=== PATIENT | female | born 1980 | race Caucasian/White ===

== ENCOUNTER 2019-06-02 22:48 | Emergency (ER) | payer SELFPAY ==
[2019-06-02 22:49] VITALS: BP 140/96; PULSE 124; RESP 18; TEMP 36.9; O2SAT 99; BMI 32.6
--- NOTE | 2019-06-02 22:51 | RAD_ITS ---
HISTORY: FALL, LATERAL PAIN EXAM/TECHNIQUE: XR Ankle Min 3 Views: Right. COMPARISON: None. FINDINGS: # of images incl. paperwork: 3 Acute minimally displaced small in size fracture through the lateral process of the talus. Adjacent soft tissue swelling. No other fracture is evident. The talar dome, and malleoli, are intact. Alignment otherwise anatomic. Normal bony mineralization. No significant underlying degenerative changes. RAD/Ankle min 3 Views IMPRESSION: Acute minimally displaced small in size fracture through the lateral process of the talus. Adjacent soft tissue swelling. at 2316 Reported and signed by: Nixon Zamudio MD Electronically Signed: Nixon Zamudio, at 23:15 EDT Tel , Service support ,
--- NOTE | 2019-06-03 00:02 | ED.VISSUMM ---
- ER Visit Summary Date of Service: 06/03/19 Chief Complaint: Right ankle pain History of Present Illness: The patient is a 39 F who presents with right ankle pain. This occurred about 12 hours ago. She stepped off a step. She states she felt a snap in her right foot or ankle and has had severe pain since that time. She is able to bear weight but very painful. No other injuries. No recent illness. Physical Examination: Heart rate 124 vitals otherwise normal No distress There is soft tissue swelling and tenderness over the lateral right ankle no deformity easily palpable dorsalis pedis pulse with brisk capillary refill normal sensation to light touch no tenderness in the foot Test Results: Ankle x-ray shows an acute minimally displaced fracture of the lateral talus Emergency Department Course and Treatment: X-rays above. Patient was given a boot orthosis and crutches. She was advised to follow-up with orthopedics and was referred. She was given [place] for pain as well as a prescription for a short course of the same. Treatment Plan: [] Disposition: Discharge Impression: Right talus fracture This note was generated with [employer] dictation software. It may contain incorrect words, spelling, and punctuation that were not noted in review of the chart prior to signing ED Disposition - Plan for ED Patient: Referrals: Shireen Charles, JESSIE-C [Primary Care Provider] -
--- NOTE | 2019-06-03 00:04 | DCINST.ED_ITS ---
ED Disposition - Plan for ED Patient: Instructions: FRACTURE, Ankle (General) Prescriptions: Hydrocodone Bitart/Apap 5-325 [Levels 5MG-325MG] 1 tab PO Q6H PRN PRN 3 Days #10 tab PRN Reason: Pain Prescription Printed Referrals: Shireen Charles, BR[employer] OPERATOR-C [Primary Care Provider] -
--- NOTE | 2019-06-03 00:04 | ED.DEP ---
ED Disposition - Plan for ED Patient: Instructions: FRACTURE, Ankle (General) Prescriptions: Hydrocodone Bitart/Apap 5-325 [[place] 5MG-325MG] 1 tab PO Q6H PRN PRN 3 Days #10 tab PRN Reason: Pain Prescription Printed Referrals: Shireen Charles, [employer] [Primary Care Provider] -
[2019-06-03] MEDS: HYDROcodone Bitartrate/Apap 5/325 Tablet PO (00:06)
[2019-06-03 00:20] VITALS: BP 118/70; PULSE 100; RESP 17; O2SAT 98
--- NOTE | 2019-06-03 10:22 | ED.RN ---
Dr Curry wanted this nurse to call pt and give Dr Bradford information for followup. Pt states that she had already called [facility] and set up an appointment
== END 2019-06-03 00:21 | disposition home or self-care (01) ==
PROVIDERS: Emergency Provider Emergency Medicine; Family Provider Nurse Practitioner Family; PCP Nurse Practitioner Family
DX: S92.141A Displaced dome fracture of right talus, initial encounter for closed fracture (principal); W10.9XXA Fall (on) (from) unspecified stairs and steps, initial encounter; Y93.89 Activity, other specified; Y92.9 Unspecified place or not applicable
CPT/HCPCS: 73610; 99284

== ENCOUNTER → 2019-06-13 07:06 | Outpatient (CLI) | payer SELFPAY ==
[2019-06-02 22:49] VITALS: BMI 32.6
--- NOTE | 2019-06-13 07:16 | CT_ITS ---
STUDY: CT RIGHT ANKLE WITHOUT CONTRAST REASON FOR EXAM: Female, 39 years old. Ankle fracture RADIATION DOSAGE (If Supplied By Facility): CTDIvol = ( 15.35 ) mGy, DLP = ( 395.98 ) mGycm TECHNIQUE: Thin section transaxial imaging of the ankle was obtained, with sagittal and coronal reconstructed images. Individualized dose optimization techniques were used for this CT. COMPARISON: X-ray ankle June 02, 2019 FINDINGS: Normal visualized distal tibia and fibula. Normal tibiotalar articulation and talar dome. Again seen is a lucency through the lateral talar process. The calcaneus, navicular and cuboid tarsal bones. Normal subtalar, talonavicular and calcaneocuboid articulations. Normal navicular-cuneiform, cuneiform tarsal bones and intercuneiform articulations. Normal tarsometatarsal articulations and visualized metatarsi. Mild soft tissue swelling is present over the lateral malleolus. CT/Extremity Lower without Contra IMPRESSION: Redemonstrated lateral talar process fracture without significant displacement. Mild soft tissue swelling is present. Electronically Signed: Dioni Singh, at 17:04 EDT Tel , Service support ,
== END ==
PROVIDERS: Family Provider Nurse Practitioner Family; PCP Nurse Practitioner Family; Referring Provider Podiatrist Foot & Ankle Surgery; Visit Provider Podiatrist Foot & Ankle Surgery
DX: S92.191A Other fracture of right talus, initial encounter for closed fracture (principal)
CPT/HCPCS: 73700

== ENCOUNTER → 2024-12-18 | Outpatient (CLI) | payer OTHER, SELFPAY ==
--- NOTE | 2024-12-18 12:35 | RAD_ITS ---
EXAM: XR Right Wrist Complete, 3 or More Views CLINICAL INDICATION: TECHNIQUE: Frontal, lateral and oblique views of the right wrist. COMPARISON: No relevant prior studies available. FINDINGS: BONES/JOINTS: See below. SOFT TISSUES: Soft tissue swelling without acute fracture. No radiopaque foreign body. RAD/Wrist min 3 Views IMPRESSION: 1. Soft tissue swelling without acute fracture. 2. If symptoms persist, repeat radiograph in 7-10 days recommended. Reading Location: [facility]
--- NOTE | 2024-12-18 12:35 | RAD_ITS ---
EXAM: XR Lumbosacral Spine, 4 or 5 Views CLINICAL INDICATION: TECHNIQUE: Frontal, lateral and bilateral oblique views of the lumbar spine. COMPARISON: No relevant prior studies available. FINDINGS: VERTEBRAE: Unremarkable. Normal alignment. No acute fracture. SACRUM/COCCYX: Unremarkable as visualized. No acute fracture. DISC SPACES: Status post posterior fusion of L3-L5 with disc spacers. Intact hardware. SOFT TISSUES: Unremarkable. RAD/L/S Spine Min 4 Views IMPRESSION: No acute fracture. Reading Location: [facility]
== END | disposition home or self-care (01) ==
LOC: MTRAD 12:34
PROVIDERS: PCP Nurse Practitioner Family; Referring Provider Physician Assistant Surgical; Visit Provider Physician Assistant Surgical
DX: S30.0XXA Contusion of lower back and pelvis, initial encounter (principal); S66.912A Strain of unspecified muscle, fascia and tendon at wrist and hand level, left hand, initial encounter; W00.9XXA Unspecified fall due to ice and snow, initial encounter
CPT/HCPCS: 72110; 73110

== ENCOUNTER 2024-12-22 12:15 | Emergency (ER) | payer OTHER, SELFPAY ==
[2024-12-22 12:15] VITALS: BP 185/99; PULSE 98; RESP 18; TEMP 37.1; O2SAT 100; BMI 34.2
--- NOTE | 2024-12-22 14:39 | ED.VIS.BACK ---
HPI History of Present Illness Chief Complaint: Back Informant: patient Narrative Narrative: About 4 days ago, patient had a slip on ice at work and fell to her buttocks and left wrist. [facility] [employer] and had x-rays of her lumbar spine and her left wrist which were negative and she was prescribed a Medrol Dosepak. She states she has taken that and is almost done with it. She states yesterday she started having increased pain at radiating toward both buttocks and some tingling in those areas in her proximal posterior thighs. No weakness in her legs, no numbness in her feet, no bowel or bladder dysfunction or perineal anesthesia/numbness. She had prior remote back surgery involving a fusion of her lower lumbar and upper sacral spine. She denies having any arm weakness, other back pain or current neck pain. She states when she called the [facility] with this information she was advised to not go there and come to the ER instead. She states she has been taking Tylenol and ibuprofen and it is not helping her pain. [facility] Medical History Depression Anxiety delivery delivered Physical exam, pre-employment Home Medications ?Medication ?Instructions ?Recorded ?Last Taken ?Type methylprednisolone 4 mg tablets in 4 mg PO PER PKG DIR 6 days #21 tabs 12/18/24 Unknown Rx a dose pack (Medrol (Samir)) oxycodone-acetaminophen 5 mg-325 1 tab PO Q6H PRN PRN Pain 3 days 12/22/24 Unknown Rx mg tablet #10 TABLETS Allergy/AdvReac Type Severity Reaction Status Date / Time No Known Allergies Allergy Verified 12/22/24 12:15 Surgical History History of appendectomy H/O: hysterectomy History of arthroplasty of left ankle Previous back surgery Social History household members: children housing: house current occupational status: employed Smoking Status: Never smoker ROS ROS ED Constitutional Constitutional ED: Denies chills or fever(s) Gastrointestinal Gastrointestinal: Denies abdominal pain, constipation, fecal incontinence, nausea or vomiting Genitourinary Genitourinary ED: Reports other Details: no urinary retention ; Denies abdominal discomfort or urinary incontinence Musculoskeletal Musculoskeletal: Reports as per HPI and back pain; Denies neck pain Integumentary Denies rash or wounds Neurologic Neurologic: Reports paresthesias RLE and LLE; Denies headache(s) or weakness EXAM Physical Exam Const Vital Signs: 12/22/24 12:15 Temperature 98.7 F Temperature Source Oral Pulse Rate 98 Respiratory Rate 18 Blood Pressure 185/99 H Blood Pressure Mean 127 Pulse Ox 100 Oxygen Delivery Method Room Air Positive well nourished and well developed General Appearance ED: well developed and NAD HEENT Negative for trauma or tenderness Eyes PERRL and EOMs intact bilaterally Neck full ROM and supple GI normal to inspection, nondistended, normoactive bowel sounds, soft to palpation and non-tender Back/Spine normal to inspection Back/Spine Narrative: well-healed surgical scar midline lumbar spine. With straight leg raises, she has radicular symptoms down to the foot with the ipsilateral left straight leg raise, but tingling to the popliteal area only on the right and not as severe as the left. No cross straight leg raises. Cervical Spine: Negative for cervical spine tenderness Thoracic Spine / Upper Back: Negative for thoracic spinal tenderness Lumbar Spine / Lower Back: ROM limited, lumbar spinal tenderness L5 (and sacrum; no crepitance) and paraspinal muscle tenderness Extremity normal to inspection, full ROM and no pedal edema Neuro oriented x3 and no sensory deficits noted Sensorium / Orientation: alert Motor Exam: strength 5/5 throughout and clonus absent Deep Tendon Reflexes: Rt Patellar (L4): 2+, Lt Patellar (L4): 2+, Rt Ankle (S1): 2+ and Lt Ankle (S1): 2+ Deep Tendon Reflexes Back: Rt Patellar (L4): 2+, Lt Patellar (L4): 2+, Rt Ankle (S1): 2+ and Lt Ankle (S1): 2+ Plantar Reflex: Downgoing: bilateral Psych mental status grossly normal and thought process normal Skin no rashes or lesions noted and no wounds MDM MDM MDM Narrative Medical decision making narrative: This patient has straight leg raises that suggest radicular pain full numbness down the left lower extremity but not so much on the right with the same straight leg raises which were to or beyond 45 degrees. Her reflexes are normal, neurologic exam is otherwise normal and she does not have symptoms or findings of cauda equina syndrome. For this reason, she does not meet criteria for an emergent MRI right now, nor do I know if her hardware is compatible. Furthermore, I did review her outpatient x-ray report and images from 4 days ago, and there are a couple of radiopaque disc spacers in place along with the intact hardware, and the spacers are also intact on all of the views. I showed this to the patient to reassure her. At this point, she is reassured neurologically, given a dose of something for pain here and a prescription for some analgesics given that she has been trying [id number] is having trouble functioning and we will have her follow-up with the [facility]. Discharge Plan Triage Chief Complaint: Back ED Provider: Bill Dejesus Dx/Rx/DC Orders Clinical Impression: Lumbosacral ligament sprain, Acute low back pain with left-sided sciatica Instructions: Self-Care for Strains and Sprains, ED Sciatica Prescriptions: New oxycodone-acetaminophen 5-325 mg tablet 1 tab PO Q6H PRN PRN (Reason: Pain) 3 Days Qty: 10 0RF No Action methylprednisolone [Medrol (Samir)] 4 mg tablets,dose pack 4 mg PO PER PKG DIR 6 Days Qty: 21 0RF Primary Care Provider: Shireen Charles NP Referrals: [facility] [Group of Physicians] - As soon as possible (or [facility] if preferred by your employer) Print Language: Burundian Disposition Disposition: Home, Self Care
[2024-12-22] MEDS: oxyCODONE 5 MG Tablet PO (14:51)
[2024-12-22 14:54] VITALS: BP 162/88; PULSE 91; RESP 18; TEMP 37.2; O2SAT 99
== END 2024-12-22 14:55 | disposition home or self-care (01) ==
PROVIDERS: Emergency Provider Emergency Medicine; PCP Nurse Practitioner Family; Visit Provider Emergency Medicine
DX: M54.42 Lumbago with sciatica, left side (principal); S33.9XXA Sprain of unspecified parts of lumbar spine and pelvis, initial encounter; W00.9XXA Unspecified fall due to ice and snow, initial encounter
CPT/HCPCS: 99282

== ENCOUNTER → 2025-01-24 | Outpatient (CLI) | payer OTHER, SELFPAY ==
--- NOTE | 2025-01-24 07:00 | MRI_ITS ---
PROCEDURE: MRI lumbar spine without IV contrast REASON FOR EXAM: Pain, contusion TECHNIQUE: Multisequence multiplanar MR images of the lumbar spine were obtained without the administration of intravenous contrast. COMPARISON: None FINDINGS: Acute/subacute nondisplaced fracture at the level of S2-S3 with surrounding bone marrow edema. No additional acute fractures. Mild chronic compression deformity of the superior endplate of L2. Alignment is satisfactory. Posterior fusion/decompression from L3 through L5. Conus medullaris is intact and terminates at T12-L1. Moderate paraspinal muscle atrophy. L1-2: Minimal posterior disc osteophyte complex. Mild bilateral facet arthrosis. No significant spinal stenosis or foraminal narrowing. L2-3: Small posterior disc bulge. Mild bilateral facet arthrosis. No significant spinal stenosis or foraminal narrowing. L3-4: No focal disc abnormality, spinal stenosis or foraminal narrowing. L4-5: No focal disc abnormality, spinal stenosis or foraminal narrowing. L5-S1: Posterior disc bulge eccentric to the left. Moderate bilateral facet arthrosis. No significant spinal stenosis. Mild left foraminal narrowing. MRI/Spine Lumbar (Routine) IMPRESSION: 1. Acute/subacute nondisplaced fracture at S2-S3. 2. No significant spinal stenosis. Acquired mild left foraminal narrowing at L 5-S1. 3. Posterior fusion/decompression from L3 through L5. Reading Location: [facility]
== END | disposition home or self-care (01) ==
LOC: MRI 06:58
PROVIDERS: PCP Nurse Practitioner Family; Referring Provider Physician Assistant Surgical; Visit Provider Physician Assistant Surgical
DX: S30.0XXA Contusion of lower back and pelvis, initial encounter (principal)
CPT/HCPCS: 72148